=== PATIENT | female | born 1985 | race Two or more races ===

== ENCOUNTER 2024-08-27 11:16 | Emergency (ER) | payer OTHER ==
[~2024-08-27] VITALS: Ht 154.9 cm; Wt 75.0 kg
[2024-08-27 11:29] VITALS: BP 126/70; PULSE 68; RESP 18; TEMP 97.9; O2SAT 99
[2024-08-27] MEDS: ACETAMINOPHEN 500 MG TABLET PO ONE (12:54)
== END 2024-08-27 14:51 | disposition home or self-care (01) ==
LOC: EMS 11:16
DX: R51.9 Headache, unspecified (principal); M54.50 Low back pain, unspecified; Q90.9 Down syndrome, unspecified; V89.2XXA Person injured in unspecified motor-vehicle accident, traffic, initial encounter; Y93.89 Activity, other specified; Y92.410 Unspecified street and highway as the place of occurrence of the external cause; Y99.8 Other external cause status
CPT/HCPCS: 99282; Z7502; Z7610